=== PATIENT | female | born 1995 | race Caucasian/White ===

== ENCOUNTER 2016-05-23 12:42 | Emergency (ER) | payer OTHER ==
[~2016-05-23] VITALS: Ht 165.1 cm; Wt 56.7 kg
[2016-05-23] MEDS ORDERED: ACETAMINOPHEN ES 500 MG TABLET PO ONE (13:15)
[2016-05-23] MEDS ORDERED: CEFTRIAXONE 1 G in IV DEXTROSE 5% 50 ML IV ONE (13:15)
[2016-05-23] MEDS ORDERED: IV NS 1000 ML 1,000 ML IV ONE (13:15)
[2016-05-23] MEDS ORDERED: methylPREDNISolone SOD SUCC 125 MG/2 ML VIAL IV ONE (13:15)
[2016-05-23] MEDS ORDERED: CEFTRIAXONE 1 G VIAL ONE (13:20)
[2016-05-23] MEDS ORDERED: ACETAMINOPHEN ES 500 MG TABLET ONE (13:20)
[2016-05-23] MEDS ORDERED: methylPREDNISolone SOD SUCC 125 MG/2 ML VIAL ONE (13:20)
--- NOTE | 2016-05-23 13:21 | NUR ---
IV PLACED, 1L 0.9 NS BOLUS INFUSING, ROCEFIN IVPB INFUSING, SOLUMEDROL ADMIN. RAPID STREP AND URINE AT THE LAB.
[2016-05-23] MEDS ORDERED: MORPHINE SULFATE 2 MG/1 ML DISP.SYRIN ONE (13:41)
[2016-05-23] MEDS ORDERED: ONDANSETRON 4 MG/2 ML VIAL ONE (13:41)
--- NOTE | 2016-05-23 13:41 | NUR ---
PT DID NOT WANT TO SWALLOW TYLENOL EARLIER, STATED"IT HURTS TOO MUCH!, DR CAZARES AWARE AND STATED TO WAIT AFTER MEDS DONE, MAY BE PT WILL BE ABLE TO SWALLOW.
[2016-05-23] MEDS ORDERED: MORPHINE SULFATE 2 MG/1 ML DISP.SYRIN IV ONE (13:45)
[2016-05-23] MEDS ORDERED: ONDANSETRON 4 MG/2 ML VIAL IV ONE (13:45)
--- NOTE | 2016-05-23 14:24 | NUR ---
PT WAS D/C TO HOME. D/C INSTRUCTIONS GIVEN TO THE PT.
[2016-05-23 14:25] VITALS: BP 132/65
== END 2016-05-23 14:25 | disposition home or self-care (01) ==
LOC: ER 12:42
DX: J02.0 Streptococcal pharyngitis (principal); E86.0 Dehydration; R11.2 Nausea with vomiting, unspecified
CPT/HCPCS: 96365; 96375; 99284; A4663; J0696; J2270; J2405; J2930; J3490; J7030

== ENCOUNTER 2017-01-30 15:14 | Emergency (ER) | payer MEDICAID ==
[~2017-01-30] VITALS: Ht 152.4 cm; Wt 54.4 kg
--- NOTE | 2017-01-30 15:46 | NUR ---
PT IS IN ROOM #2A. DR SINGLETON EVALUATED THE PT.
[2017-01-30] MEDS ORDERED: PANTOPRAZOLE SODIUM 40 MG TABLET.DR PO ONE ×2 (16:00→16:14)
[2017-01-30] MEDS ORDERED: ONDANSETRON ODT 4 MG TAB.RAPDIS SL ONE (16:00)
[2017-01-30 16:10] LABS: *URINE HCG, QUAL NEGATIVE (NEGATIVE)
[2017-01-30] MEDS ORDERED: ONDANSETRON ODT 4 MG TAB.RAPDIS ONE (16:14)
--- NOTE | 2017-01-30 16:16 | NUR ---
PT WAS D/C TO HOME. D/C INSTRUCTIONS GIVEN TO THE PT.
[2017-01-30 16:17] VITALS: BP 121/73
== END 2017-01-30 16:18 | disposition home or self-care (01) ==
LOC: ER 15:14
DX: K29.70 Gastritis, unspecified, without bleeding (principal); J45.909 Unspecified asthma, uncomplicated
CPT/HCPCS: 84703; A4663; Q0162

== ENCOUNTER 2017-03-29 20:57 | Emergency (ER) | payer MEDICAID ==
[~2017-03-29] VITALS: Ht 152.4 cm; Wt 56.7 kg
--- NOTE | 2017-03-29 22:07 | NUR ---
Patient discharged to home in stable conditon. Written and verbal after care instructions given. Patient verbalizes understanding of instructions.
== END 2017-03-29 22:08 | disposition home or self-care (01) ==
LOC: ER 20:58
DX: J02.8 Acute pharyngitis due to other specified organisms (principal); B97.89 Other viral agents as the cause of diseases classified elsewhere; J45.909 Unspecified asthma, uncomplicated
CPT/HCPCS: 36415; 86403; 87070; A4663

== ENCOUNTER 2017-05-16 23:08 | Emergency (ER) | payer MEDICAID ==
[~2017-05-16] VITALS: Ht 152.4 cm; Wt 56.7 kg
--- NOTE | 2017-05-16 23:24 | NUR ---
PT AMBULATED TO AND FROM BATHROOM W/ STEADY GAIT. NO DISTRESS NOTED.
--- NOTE | 2017-05-16 23:28 | NUR ---
ADILENE DUARTE AT BEDSIDE FOR MSE.
--- NOTE | 2017-05-16 23:41 | NUR ---
Patient discharged to home in stable conditon. Written and verbal after care instructions given. Patient verbalizes understanding of instructions. Pt ambulated from ER w/ steady gait. No distress noted.
[2017-05-16 23:43] VITALS: BP 114/78
== END 2017-05-16 23:45 | disposition home or self-care (01) ==
LOC: ER 23:19
DX: J03.90 Acute tonsillitis, unspecified (principal); B37.3 Candidiasis of vulva and vagina; J45.909 Unspecified asthma, uncomplicated; F17.210 Nicotine dependence, cigarettes, uncomplicated
CPT/HCPCS: A4663

== ENCOUNTER 2017-06-08 20:12 | Emergency (ER) | payer MEDICAID ==
[~2017-06-08] VITALS: Ht 152.4 cm; Wt 59.0 kg
== END 2017-06-08 21:46 | disposition home or self-care (01) ==
LOC: ER 20:13
DX: J02.9 Acute pharyngitis, unspecified (principal); J45.909 Unspecified asthma, uncomplicated
CPT/HCPCS: 36415; 86403; 87070; A4663

== ENCOUNTER 2017-06-23 17:40 | Emergency (ER) | payer MEDICAID, OTHER ==
[~2017-06-23] VITALS: Ht 152.4 cm; Wt 57.6 kg
[2017-06-23 18:28] LABS: BASOPHILS % (AUTO) 0.6 % (0.0-2.0); EOSINOPHILS # (AUTO) 0.1 K/uL (0.0-0.7); EOSINOPHILS % (AUTO) 1.6 % (0.0-7.0); HEMATOCRIT 38.8 % (31.2-41.9); LYMPHOCYTES % (AUTO) 41.2 % (20.5-51.5); MEAN CORPUSCULAR HEMOGLOBIN 27.6 uug (24.7-32.8); MEAN CORPUSCULAR HGB CONC 34 g/dL (32.3-35.6); MEAN CORPUSCULAR VOLUME 82.3 fL (75.5-95.3); MONOCYTES # (AUTO) 0.7 K/uL (2.0-10.0); NEUTROPHILS # (AUTO) 3.5 K/uL (1.8-8.9); NEUTROPHILS % (AUTO) 47.6 % (38.5-71.5); PLATELET COUNT (AUTO) 163 K/uL (179-408); RED BLOOD CELL COUNT(AUTO) 4.72 MIL/uL (3.63-4.92); WHITE BLOOD COUNT (AUTO) 7.3 K/uL (3.8-11.8)
--- NOTE | 2017-06-23 18:45 | NUR ---
Dr Barrera is at bedside.
--- NOTE | 2017-06-23 18:50 | NUR ---
U/S scan was cancelled by . Copies of the blood tests' results were given to patient. Patient discharged to home in stable conditon. Written and verbal after care instructions given to patient. Patient verbalizes understanding of instructions.
== END 2017-06-23 18:52 | disposition home or self-care (01) ==
LOC: ER 17:42
DX: N93.8 Other specified abnormal uterine and vaginal bleeding (principal); J45.909 Unspecified asthma, uncomplicated
CPT/HCPCS: 36415; 84703; 85025; A4663